=== PATIENT | female | born 1980 | race Caucasian/White ===

== ENCOUNTER 2023-12-21 18:51 | Emergency (ER) | payer BC ==
[2023-12-21 18:57] VITALS: RESP 18; TEMP 99.1
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
[2023-12-21] MEDS: DIPH,PERTUS(ACELL)TETVAC-LF 0.5 ML VIAL IM ONE (19:52)
[2023-12-21] MEDS: LIDOCAINE 1% INJ 10MG/ML (20 ML MDV) SQ ONE (19:52)
[2023-12-21] MEDS: BACITRACIN ZINC 500 UNIT/GM OINT 28.4 GM TUBE TOPICAL ONE (21:19)
[2023-12-21] MEDS: CEPHALEXIN 500MG STARTER PACK 4 CAP BTL PO STA (21:19)
[2023-12-21] MEDS: ACET/COD 300 MG/30 MG STARTER PACK 6 TAB BTL PO STA (21:19)
[2023-12-21 21:30] VITALS: BP 138/86; PULSE 70
== END 2023-12-21 21:28 | disposition home or self-care (01) ==
LOC: EC 18:51
DX: S81.811A Laceration without foreign body, right lower leg, initial encounter (principal); Z23 Encounter for immunization; W01.10XA Fall on same level from slipping, tripping and stumbling with subsequent striking against unspecified object, initial encounter
CPT/HCPCS: 90715; 12004; 90471; 99283; J2001